=== PATIENT | male | born 1965 | race Caucasian/White ===

== ENCOUNTER 2021-01-25 16:42 | Outpatient (CLI) | payer MEDICAID, SELFPAY ==
[2021-01-25 17:50] LABS: Blood Urea Nitrogen 13 mg/dL (6-20); Calcium 9.5 mg/dL (8.5-10.5); Carbon Dioxide 29 mmol/L (22-29); Chloride 84 mmol/L (98-107); Glomerular Filtration Rate 116.7 mL/min (90-130); Glucose 212 mg/dL (65-115); NT Pro B Type Natriuretic Pept 302 pg/mL (0-125); Osmolality Calculated 276 mOsm/kg (285-295); Sodium 130 mmol/L (136-145)
== END 2021-01-25 16:43 | disposition home or self-care (01) ==
LOC: LAB 16:50
PROVIDERS: Visit Provider Internal Medicine
DX: E11.65 Type 2 diabetes mellitus with hyperglycemia (principal); I25.10 Atherosclerotic heart disease of native coronary artery without angina pectoris; I10 Essential (primary) hypertension
CPT/HCPCS: 80048; 83880